=== PATIENT | female | born 1975 | race Hispanic/Latino ===

== ENCOUNTER 2019-12-11 12:06 | Emergency (ER) | payer BC ==
--- NOTE | 2019-12-11 14:58 | ER ---
Nurse's Notes [facility] Name: Alice Yeager Age: 44 yrs Sex: Female : 1975 Arrival Date: 12/11/2019 Time: 12:09 Bed 24 Private MD: Casey Luis Diagnosis: Cellulitis and acute lymphangitis of other parts of limb;Cutaneous abscess of right upper limb Presentation: 12/11 12:31 Presenting complaint: Patient states: "I had a spot on my arm that I've had for months, aj1 last week it flared up real bad so I went to my doctor and she put me on antibiotics, but it got worse so I went back to my doctor on Saturday, and she gave me a different antibiotic, that didn't work so she told me to go to the seo team lead, so I went there and they cut some of it out and gave me antibiotics but the redness just continues to grow" Denies fever. Transition of care: patient was not received from another setting of care. Onset of symptoms was 2019. Risk Assessment: Do you want to hurt yourself or someone else? Patient reports no desire to harm self or others. Initial Sepsis Screen: Does the patient meet any 2 criteria? No. Patient's initial sepsis screen is negative. Does the patient have a suspected source of infection? Yes: Skin breakdown/wound. Care prior to arrival: None. 12:31 Method Of Arrival: Ambulatory aj1 12:31 Acuity: JOSÉ LUIS 3 aj1 Triage Assessment: 12:33 General: Appears in no apparent distress. comfortable, Behavior is calm, cooperative, aj1 appropriate for age. Pain: Pain currently is 4 out of 10 on a pain scale. Neuro: Level of Consciousness is awake, alert, obeys commands. Cardiovascular: Patient's skin is warm and dry. Respiratory: Airway is patent Respiratory effort is even, unlabored, Respiratory pattern is regular, symmetrical. 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 - Social history:: Smoking status: Patient/guardian denies using tobacco. - Ebola Screening: : Patient denies travel to an Ebola-affected area in the 21 days before illness onset. - Family history:: not pertinent. Screenin:39 Abuse screen: Denies threats or abuse. Denies injuries from another. Nutritional ls4 screening: No deficits noted. Tuberculosis screening: No symptoms or risk factors identified. Fall Risk None identified. Assessment: 14:00 General: Appears in no apparent distress. Behavior is calm, cooperative. Neuro: No ls4 deficits noted. Cardiovascular: No deficits noted. Respiratory: No deficits noted. Derm: Skin is intact, Skin is dry, Skin is pink, warm \\T\\ dry. LOWER RIGHT ARM REDNESS AND SWELLING. Vital Signs: 12:33 BP 121 / 87; Pulse 75; Resp 16; Temp 98.0; Pulse Ox 99% on R/A; Weight 61.23 kg (R); aj1 Height 5 ft. 4 in. (162.56 cm) (R); Pain 4/10; 12:33 Body Mass Index 23.17 (61.23 kg, 162.56 cm) aj1 ED Course: 12:09 Patient arrived in ED. mr 12:10 Casey Luis MD is Private Physician. mr 12:33 Triage completed. aj1 12:33 Arm band placed on Patient placed in waiting room, Patient notified of wait time. aj1 13:54 Shawn Hanna MD is Attending Physician. anselmo 14:00 Patient has correct armband on for positive identification. Bed in low position. Call ls4 light in reach. Side rails up X2. 14:04 Karen Hampton, YOVANNY is Primary Nurse. ls4 14:53 Casey Luis MD is Referral Physician. anselmo 15:40 No provider procedures requiring assistance completed. Patient did not have IV access ls4 during this emergency room visit. Administered Medications: 15:09 Drug: Bactrim (160 mg-800 mg (DS) 1 tablet Route: PO; ls4 15:09 Drug: Doxycycline 200 mg Route: PO; ls4 15:09 Drug: Bactroban Ointment 2 % 1 application Route: Topical; Site: affected area; ls4 Outcome: 14:57 Discharge ordered by . anselmo 15:42 Patient left the ED. ls4 Signatures: Jen Barahona RN RN aj1 Shawn Hanna MD MD cha Rivera, Mary mr Stewart, Lisa, RN RN ls4
--- NOTE | 2019-12-11 14:58 | EDPHYS ---
Physician Documentation [facility] Name: Alice Yeager Age: 44 yrs Sex: Female : 1975 Arrival Date: 12/11/2019 Time: 12:09 Bed 24 Private MD: Casey Luis ED Physician Shawn Hanna HPI: 12/11 14:46 This 44 yrs old Female presents to ER via Ambulatory with complaints of anselmo Abscess. 14:46 The patient presents with an abscess of the palmar aspect of right forearm. anselmo Description: The affected area is erythematous, swollen, warm. Onset: The symptoms/episode began/occurred 7 day(s) ago. Possible cause(s): unknown. Associated signs and symptoms: The patient has no apparent associated signs or symptoms. Modifying factors: the symptoms are alleviated by nothing, the symptoms are aggravated by movement, pressure, sitting, squeezing the lesion and expressing the contents. Severity of symptoms: At their worst the symptoms were mild, in the emergency department the symptoms are unchanged. The patient has not experienced similar symptoms in the past. 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 - Social history:: Smoking status: Patient/guardian denies using tobacco. - Ebola Screening: : Patient denies travel to an Ebola-affected area in the 21 days before illness onset. - Family history:: not pertinent. ROS: 14:46 Constitutional: Negative for fever, chills, and weight loss, Eyes: Negative for injury, anselmo pain, redness, and discharge, ENT: Negative for injury, pain, and discharge, Neck: Negative for injury, pain, and swelling, Cardiovascular: Negative for chest pain, palpitations, and edema, Respiratory: Negative for shortness of breath, cough, wheezing, and pleuritic chest pain, Abdomen/GI: Negative for abdominal pain, nausea, vomiting, diarrhea, and constipation, Back: Negative for injury and pain, : Negative for injury, bleeding, discharge, and swelling, Neuro: Negative for headache, weakness, numbness, tingling, and seizure, Psych: Negative for depression, anxiety, suicide ideation, homicidal ideation, and hallucinations, Allergy/Immunology: Negative for hives, rash, and allergies, Endocrine: Negative for neck swelling, polydipsia, polyuria, polyphagia, and marked weight changes, Hematologic/Lymphatic: Negative for swollen nodes, abnormal bleeding, and unusual bruising. 14:46 MS/extremity: Positive for pain, swelling, tenderness, of the palmar aspect of right forearm. Exam: 14:46 Constitutional: This is a well developed, well nourished patient who is awake, alert, anselmo and in no acute distress. Head/Face: Normocephalic, atraumatic. Eyes: Pupils equal round and reactive to light, extra-ocular motions intact. Lids and lashes normal. Conjunctiva and sclera are non-icteric and not injected. Cornea within normal limits. Periorbital areas with no swelling, redness, or edema. ENT: Nares patent. No nasal discharge, no septal abnormalities noted. Tympanic membranes are normal and external auditory canals are clear. Oropharynx with no redness, swelling, or masses, exudates, or evidence of obstruction, uvula midline. Mucous membranes moist. Neck: Trachea midline, no thyromegaly or masses palpated, and no cervical lymphadenopathy. Supple, full range of motion without nuchal rigidity, or vertebral point tenderness. No Meningismus. Chest/axilla: Normal chest wall appearance and motion. Nontender with no deformity. No lesions are appreciated. Cardiovascular: Regular rate and rhythm with a normal S1 and S2. No gallops, murmurs, or rubs. Normal PMI, no JVD. No pulse deficits. Respiratory: Lungs have equal breath sounds bilaterally, clear to auscultation and percussion. No rales, rhonchi or wheezes noted. No increased work of breathing, no retractions or nasal flaring. Back: No spinal tenderness. No costovertebral tenderness. Full range of motion. Skin: Warm, dry with normal turgor. Normal color with no rashes, no lesions, and no evidence of cellulitis. MS/ Extremity: Pulses equal, no cyanosis. Neurovascular intact. Full, normal range of motion. Neuro: Awake and alert, GCS 15, oriented to person, place, time, and situation. Cranial nerves II-XII grossly intact. Motor strength 5/5 in all extremities. Sensory grossly intact. Cerebellar exam normal. Normal gait. Psych: Awake, alert, with orientation to person, place and time. Behavior, mood, and affect are within normal limits. 14:46 Abdomen/GI: Inspection: 14:46 Musculoskeletal/extremity: Extremities: erythema, pain, swelling, tenderness, ROM: no acute changes, full active range of motion, full passive range of motion, Circulation is intact in all extremities. Sensation intact. Compartment Syndrome exam of affected extremity: is normal. Vital Signs: 12:33 BP 121 / 87; Pulse 75; Resp 16; Temp 98.0; Pulse Ox 99% on R/A; Weight 61.23 kg (R); aj1 Height 5 ft. 4 in. (162.56 cm) (R); Pain 4/10; 12:33 Body Mass Index 23.17 (61.23 kg, 162.56 cm) [facility] Procedures: 14:58 Suture/Staple removal: Removed 2 sutures, from right arm, site appears reddened, anselmo dressed with band aid, Patient tolerated well. MDM: 13:54 Patient medically screened. [facility] 14:53 Data reviewed: vital signs, nurses notes. [facility] 12/11 14:46 Order name: Suture Tray at Bedside; Complete Time: 15:04 [facility] 12/11 14:46 Order name: Ice pack; Complete Time: 15:04 [facility] Administered Medications: 15:09 Drug: Bactrim (160 mg-800 mg (DS) 1 tablet Route: PO; ls4 15:09 Drug: Doxycycline 200 mg Route: PO; ls4 15:09 Drug: Bactroban Ointment 2 % 1 application Route: Topical; Site: affected area; ls4 Disposition: 12/11/19 14:57 Discharged to Home. Impression: Cellulitis and acute lymphangitis of other parts of limb, Cutaneous abscess of right upper limb. - Condition is Stable. - Discharge Instructions: Skin Abscess, Skin Abscess, [id number], Cellulitis, Adult, [id number], Incision and Drainage, Care After. - Prescriptions for Bactroban 2 % Topical Ointment - Apply to affected area 1 application by TOPICAL route every 12 hours; 30 gram. Benadryl 25 mg Oral Capsule - take 1 capsule by ORAL route every 6 hours As needed; 30 tablet. Pepcid 20 mg Oral Tablet - take 1 tablet by ORAL route every 12 hours for 10 days; 20 tablet. Doxycycline Hyclate 100 mg Oral Tablet - take 1 tablet by ORAL route every 12 hours; 20 tablet. Bactrim DS 800- 160 mg Oral Tablet - take 1 tablet by ORAL route every 12 hours for 10 days; 20 tablet. - Medication Reconciliation Form, Thank You Letter, Antibiotic Education, Prescription Opioid Use form. - Follow up: Casey Luis MD; When: 2 - 3 days; Reason: Recheck today's complaints, Continuance of care, Re-evaluation by your physician. - Problem is new. - Symptoms have improved. Signatures: Jen Barahona, RN RN aj1 Shawn Hanna MD MD cha Stewart, Lisa, RN RN ls4 Corrections: (The following items were deleted from the chart) 15:42 14:57 12/11/2019 14:57 Discharged to Home. Impression: Cellulitis and acute ls4 lymphangitis of other parts of limb; Cutaneous abscess of right upper limb. Condition is Stable. Forms are Medication Reconciliation Form, Thank You Letter, Antibiotic Education, Prescription Opioid Use. Follow up: Casey Luis; When: 2 - 3 days; Reason: Recheck today's complaints, Continuance of care, Re-evaluation by your physician. Problem is new. Symptoms have improved. anselmo
[2019-12-11] MEDS ORDERED: MUPIROCIN 2% OINT 22GM TUBE TOP ONE (15:08)
[2019-12-11] MEDS ORDERED: SMZ./TMP. 800/160 MG TABLET ONE (15:08)
[2019-12-11] MEDS ORDERED: DOXYCYCLINE 100 MG CAP PO ONE (15:08)
[2019-12-11 16:20] VITALS: BP 121/87; TEMP 98; O2SAT 99
== END 2019-12-11 15:42 | disposition home or self-care (01) ==
LOC: ER 12:06
DX: L03.113 Cellulitis of right upper limb (principal); L03.123 Acute lymphangitis of right upper limb; Z91.013 Allergy to seafood
CPT/HCPCS: 99282

== ENCOUNTER 2024-09-30 11:22 | Inpatient (IN) | payer BC ==
--- OUTSIDE RECORDS SUMMARY | 2024-09-30 11:26 | XMS REPORT | Continuity of Care Document ---
Author Name Unknown Address [address] [facility] [address] [id number] [facility] Address [address] [facility] [address] [place] [address] Care Team Providers Care Assistant Branch Manager Name Role Phone PCP, PATIENT DOES NOT HAVE A Primary Care Physic Shaji Sherman Attending Clinician Unavailable JANN HAHN Attending Clinician Jann Ramos Attending Clinician + Estee Smith Attending Clinician [phone] Doctor Unassigned, [place] Attending Clinician U Shaji Pittman Admitting Clinician Unavailable Payers Payer Name Policy Type Policy Number Effective Date Expirati on Date Source [facility] [id number] 2018 00:00:00 Problems Condition Name Condition Details Condition Category Status Onset Date Resolution Date Last Treatment Date Treating Clinician Comments Source No known active problems No known active problems Disease [facility] Allergies, Adverse Reactions, Alerts Allergy Name Allergy Type Status Severity Reaction(s) Onset Date Inactive Date Treating Clinician Comments Source KEENAN Lawrence DERIVED DRUG INGREDI Active Anaphylaxis 04-21 00:00: 00 [facility] Nitrofur antoin Monohyd/ M-Cryst Propensi ty to adverse reaction s Active Itching 04-21 00:00: 00 [facility] Shellfis h Derived Propensi ty to adverse reaction s Active Anaphylaxis 04-21 00:00: 00 [facility] NITROFUR ANTOIN MONOHYD/ M-CRYST DRUG Active ITCHING 04-21 00:00: 00 [facility] No Known Allergie s DA Active U 2009-11 00:00: 00 [facility] No Known Contrast Allergie s DA Active U 08-19 00:00: 00 [facility] NO KNOWN ALLERGIE S Drug Class Active [facility] Social History Social Habit Start Date Stop Date Quantity Comments Source Exposure to SARS-CoV-2 (event) 2022-04-11 00:00:00 2022-04-21 10:35:00 Not sure [facility] Tobacco use and exposure 2022-04-21 00:00:00 2022-04-21 00:00:00 Never used [facility] Sex Assigned At 1975 00:00:00 1975 00:00:00 [facility] Smoking Status Start Date Stop Date Source Unknown if ever smoked [facility] Never smoker [facility] Medications Ordered Medication Name Filled Medication Name Start Date Stop Date Current Medication? Ordering Clinician Indication Dosage Frequency Signature (SIG) Comments Components Source acetaminoph en (TYLENOL) tablet 650 mg 04-21 17:00: 00 04-21 15:56 :00 No [id number] 650mg [facility] cephALEXin (KEFLEX) 500 mg capsule 04-21 00:00: 00 Yes [id number] 500mg Take 1 capsule by mouth 3 (three) times daily. [facility] naproxen 500 mg tablet 04-21 00:00: 00 Yes [id number] 500mg Take 1 tablet by mouth 2 (two) times daily with meals. [facility] TRI-LO-ESTA RYLLA 0.18/0.215/ 0.25 mg-25 mcg tablet 02-20 00:00: 00 Yes 1{tbl} Take 1 tablet by mouth daily. [facility] methocarbam oL 750 mg tablet 02-17 00:00: 00 Yes TAKE ONE (1) TABLET(S) BY MOUTH AT BEDTIME NEEDED. [facility] Vital Signs Vital Name Observation Time Observation Value Comments S ource Systolic blood pressure 2022-04-21 15:37:00 117 mm[Hg] [facility] Diastolic blood pressure 2022-04-21 15:37:00 77 mm[Hg] [facility] Heart rate 2022-04-21 15:37:00 109 /min [facility] Body temperature 2022-04-21 15:37:00 39.11 Maria T [facility] Respiratory rate 2022-04-21 15:37:00 16 /min [facility] Body height 2022-04-21 15:37:00 162.6 cm [facility] Body weight 2022-04-21 15:37:00 68.493 kg [facility] BMI 2022-04-21 15:37:00 25.92 kg/m2 [facility] Oxygen saturation in Arterial blood by Pulse oximetry 2022-04-21 15:37:00 98 /min [facility] Procedures Procedure Date / Time Performed Performing Clinicia n Source POCT MOLECULAR FLU 2022-04-21 15:55:00 Louisa Naik [facility] POCT URINALYSIS 2022-04-21 15:45:00 Estee Naik [facility] ASSIGNMENT OF BENEFITS 2022-04-21 15:30:13 Docto r Unassigned, [place] [facility] Encounters Start Date/Time End Date/Time Encounter Type Admission Type Attending Clinicians Care Facility Care Department Encounter ID Source 2024-04-06 08:00:00 2024-04-06 08:00:00 Outpatient Shaji Arteaga [facility] JESÚS [id number] [facility] 2024-03-19 08:00:00 2024-03-19 08:00:00 Outpatient Shaji Arteaga [facility] JESÚS [id number] [facility] 2022-04-21 10:40:00 2022-04-21 11:15:28 Outpatient R JANN [facility] [id number] [facility] 2022-04-21 10:40:00 2022-04-21 11:15:28 [facility] [id number] [facility] 2022-04-21 00:00:00 2022-04-21 00:00:00 Orders Only Doctor Unassigned, [place] [facility] [id number] [facility] Results Test Description Test Time Test Comments Results Result Co mments Source [facility] SPECIFIC [id number] 15:46:00* Test Item Value Reference Range Interpretation Comme nts POCT U SP GRAV (test code = 3255) 1.025 mg/dl 1.005-1.025 POCT PH U (test code = 3254) 5 mg/dl 5-8 POCT U LEUK EST (test code = 3263) neg Negative - Negative POCT U NIT (test code = 3262) neg Negative - Negative POCT U PROT (test code = 3259) neg Negative - Negative POCT U GLU (test code = 3256) norm Negative - Negative POCT U KETONE (test code = 3258) neg Negative - Negative POCT U UROBILI (test code = 3260) norm 0.2-1 POCT U BILI (test code = 3261) neg Negative - Negative POCT U BLD (test code = 3257) Negative - Negative POCT U COLOR (test code = 3266) yellow POCT U APPEAR (test code = 3267) cloudy EARLENE (test code = EARLENE) accurate developme nt and interpretation of all internal controls Lab Interpretation (test code = 19562-7) Abnormal [facility]
[2024-09-30] MEDS ORDERED: ONDANSETRON 4 MG/2 ML VIAL ONE (11:39)
[2024-09-30] MEDS ORDERED: MORPHINE 4 MG/ML SYR ONE ×2 (11:40→13:59)
[2024-09-30] MEDS ORDERED: NA CHLORIDE 0.9% 1,000 ML ONE (11:40)
[2024-09-30] MEDS ORDERED: NA CHLORIDE 0.9% 100 ML ONE (11:50)
[2024-09-30] MEDS ORDERED: CEFTRIAXONE 2000 MG/VIAL ONE (11:50)
[2024-09-30 12:11] LABS: Absolute Basophils 0.1 K/uL (0-0.5); Absolute Lymphocytes (CBC) 1.8 K/uL (0.7-4.9); Absolute Monocytes 0.9 K/uL (0.1-1.3); Absolute Neutrophil 8.8 K/uL (1.8-8.0); Basophils % 0.5 % (0-1.3); Eosinophils % 0.4 % (0-4.4); Hematocrit 39.8 % (36.0-45.0); Hemoglobin 13.2 g/dL (12.0-15.0); Lymphocytes % 15.3 % (15.3-44.8); MCH 29.8 pg (27.0-35.0); MCHC 33.3 g/dL (32.0-36.0); MCV 89.4 fL (80-100); MPV 8.4 fL (7.6-11.3); Monocytes % 7.9 % (3.3-12.3); Neutrophils % 75.9 % (41.7-73.7); Platelets 208 thou/uL (152-406); RBC Red Blood Cell Count 4.45 M/uL (3.86-4.86); Red Cell Distribution Width 13.7 % (12.1-15.2)
[2024-09-30 12:14] LABS: Specific Gravity 1.027 (1.005-1.030); Urine Bacteria <20 /HPF (<20); Urine Bilirubin NEGATIVE (Negative); Urine Blood 3+ (Negative); Urine Clarity Extremely Turbid (Clear); Urine Color Yellow (Yellow); Urine Culture Reflex Order NOT NEEDED; Urine Glucose NEGATIVE (Negative); Urine Ketones 1+ (Negative); Urine Microscopic Reflex YN ORDER UMIC; Urine Mucus 2+ /HPF (None Seen); Urine Nitrite NEGATIVE (Negative); Urine Protein TRACE (Negative); Urine RBC <5 /HPF (None Seen); Urine Urobilinogen Normal (Normal); Urine WBC <5 /HPF (<5); Urine pH 5.5 (5.0-7.0)
[2024-09-30 12:16] LABS: Specific Gravity 1.027 (1.005-1.030)
[2024-09-30 12:33] LABS: ALT/SGPT 15 U/L (13-56); Albumin 3.5 g/dL (3.4-5.0); Albumin/Globulin Ratio 0.9 (1.1-1.8); Alkaline Phosphatase 50 U/L (45-117); Anion Gap 7.6 mEq/L (5.0-15.0); BUN Blood Urea Nitrogen 11 mg/dL (7-18); Bicarbonate 25 mEq/L (21-32); Bilirubin Total 0.7 mg/dL (0.2-1.0); Globulin 3.7 g/dL (2.3-3.5); Glomerular Filtration Rate 112 ml/min (=/>90); Glucose Level 112 mg/dL (74-106); Lipase 30 U/L (13-75); Potassium 3.6 mEq/L (3.5-5.1); Protein, Total 7.2 g/dL (6.4-8.2); Sodium Level 138 mEq/L (136-145)
[2024-09-30 12:34] LABS: AST/SGOT < 10 U/L (15-37)
--- NOTE | 2024-09-30 13:34 | RAD REPORT ---
EXAMINATION: CT Abdomen Pelvis W Contrast CLINICAL INDICATION: Female, 48 years old. REBOUND TENDERNESS TECHNIQUE: CT abdomen and pelvis was performed, after the administration of IV contrast, as per [facility] protocol. Axial, sagittal and coronal reconstructions were obtained. One or more of the following dose reduction techniques were used: Automated exposure control, adjustment of the mA and k V according to patient size, and iterative reconstruction. Unless otherwise specified, incidental findings do not require dedicated imaging follow-up. COMPARISON: None available FINDINGS: LOWER CHEST: The visualized lung bases are clear. LIVER: Normal in size and contour. No focal lesion. BILIARY SYSTEM: No suspicious abnormalities. SPLEEN: Normal size. No focal lesion. PANCREAS: No mass, ductal dilation, or magdiel-pancreatic fluid. ADRENALS: Normal; no mass. KIDNEYS: Normal size and contour. No hydronephrosis. Left interpolar 2 mm nonobstructing calculus. URINARY BLADDER: Decompressed limiting evaluation. GASTROINTESTINAL TRACT: Colonic diverticulosis. Pronounced wall thickening focally in the proximal si gmoid colon, surrounding a diverticulum projecting laterally, with focal circumferential wall thickening, adjacent fat stranding, and mucosal hyperenhancement enhancement of the colon in this reg ion. Trace fluid in the cul-de-sac. No evidence of free air, bowel obstruction or abscess. APPENDIX: Normal appendix. LYMPH NODES: No lymphadenopathy. MUSCULOSKELETAL: No acute or suspicious osseous abnormality. ADDITIONAL FINDINGS: None. IMPRESSION: Changes of acute uncomplicated sigmoid diverticulitis as above. No evidence of extraluminal gas or ab normal fluid collections. Nonobstructing left interpolar 2 mm calculus. THIS REPORT CONTAINS FINDINGS THAT MAY BE CRITICAL TO PATIENT CARE. The findings were verbally commun icated via telephone to Angela Brady MD on 09/30/2024 1:24 PM.
[2024-09-30] MEDS ORDERED: MORPHINE 2 MG/ML SYR ONE (14:00)
--- NOTE | 2024-09-30 16:22 | ER ---
Nurse's Notes [facility] Name: Alice Yeager Age: 48 yrs Sex: Female : 1975 Arrival Date: 09/30/2024 Time: 11:22 Bed 18 Private MD: Diagnosis: Diverticulitis of intestine, part unspecified, without perforation or abscess without bleeding Presentation: 09/30 11:33 Chief complaint: Patient states: Abdominal pain since Saturday with nausea. Fever started ll1 yesterday. Coronavirus screen: Client denies travel out of the [place] in the last 14 days. fatigue, fever, nausea, Client presents with at least one sign or symptom that may indicate coronavirus-19. Standard/surgical mask placed on the client. Ebola Screen: Patient denies travel to an Ebola-affected area in the 21 days before illness onset. Initial Sepsis Screen: Does the patient meet any 2 criteria? No. Patient's initial sepsis screen is negative. Does the patient have a suspected source of infection? No. Patient's initial sepsis screen is negative. Risk Assessment: Do you want to hurt yourself or someone else? Patient reports no desire to harm self or others. Onset of symptoms was September 28, 2024. 11:33 Method Of Arrival: Ambulatory ll1 11:33 Acuity: JOSÉ LUIS 3 ll1 Triage Assessment: 11:35 General: Appears uncomfortable, Behavior is calm, cooperative, appropriate for age. ll1 General: Reports fever for. Pain: Complains of pain in abdomen Pain currently is 5 out of 10 on a pain scale. Quality of pain is described as aching, crampy. GI: Reports lower abdominal pain, nausea. 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 - Infectious Disease History:: Denies. - Social history:: Smoking status: Patient denies any tobacco usage or history of. Screenin:30 [facility] ED Fall Risk Assessment (Adult) History of falling in the last 3 months, rs5 including since admission No falls in past 3 months (0 pts) Confusion or Disorientation No (0 pts) Intoxicated or Sedated No (0 pts) Impaired Gait No (0 pts) Mobility Assist Device Used No (0 pt) Altered Elimination No (0 pt) Score/Fall Risk Level 0 - 2 = Low Risk Oriented to surroundings, Maintained a safe environment. Abuse screen: Denies threats or abuse. Nutritional screening: No deficits noted. Tuberculosis screening: No symptoms or risk factors identified. Assessment: 11:30 General: Appears in no apparent distress. uncomfortable, Behavior is calm, cooperative. rs5 Pain: Complains of pain in abdomen Pain currently is 8 out of 10 on a pain scale. Quality of pain is described as aching, Is continuous. Neuro: Level of Consciousness is awake, alert, obeys commands, Oriented to person, place, time, situation. Cardiovascular: Patient's skin is warm and dry. Respiratory: Airway is patent Respiratory effort is even, unlabored, Respiratory pattern is regular, symmetrical. 11:30 GI: Bowel sounds present X 4 quads. Abd is soft and non tender X 4 quads. Reports rs5 nausea. : No signs and/or symptoms were reported regarding the genitourinary system. EENT: Reports nasal congestion sore throat. Derm: Skin is intact, Skin is pink, warm \T\ dry. Musculoskeletal: Range of motion: intact in all extremities. 12:18 Reassessment: Patient and/or family updated on plan of care and expected duration. Pain rs5 level reassessed. Patient is alert, oriented x 3, equal unlabored respirations, skin warm/dry/pink. 14:10 General: Appears comfortable, ill, well groomed, well developed, well nourished, me1 Behavior is calm, cooperative, appropriate for age, Denies Abdominal pain since Saturday with nausea. Fever started yesterday. Pain: Complains of pain in abdomen Quality of pain is described as aching, sharp, Is continuous. Neuro: Level of Consciousness is awake, alert, obeys commands, Oriented to person, place, time, situation, Appropriate for age. Cardiovascular: Patient's skin is warm and dry. Respiratory: Airway is patent Respiratory effort is even, unlabored, Respiratory pattern is regular, symmetrical. GI: Bowel sounds present X 4 quads. Abd is soft and non tender X 4 quads. Reports nausea. : No signs and/or symptoms were reported regarding the genitourinary system. EENT: Reports nasal congestion. Derm: Skin is intact, is healthy with good turgor, Skin is pink, warm \T\ dry. Musculoskeletal: Range of motion: intact in all extremities. Vital Signs: 11:33 BP 123 / 87; Pulse 105; Resp 17; Temp 99.1(O); Pulse Ox 99% on R/A; Weight 70.31 kg; ll1 Height 5 ft. 4 in. ; Pain 5/10; 12:00 BP 123 / 89; Pulse 96; Resp 16; Pulse Ox 97% ; me1 13:00 BP 113 / 76; Pulse 80; Resp 17; Pulse Ox 99% ; me1 14:00 BP 115 / 82; Pulse 82; Resp 16; Pulse Ox 98% ; me1 15:00 BP 104 / 76; Pulse 82; Resp 16; Pulse Ox 99% ; me1 16:00 BP 125 / 83; Pulse 91; Resp 14; Pulse Ox 99% ; me1 17:26 BP 122 / 90; Pulse 92; Resp 16; Pulse Ox 98% ; me1 18:01 BP 112 / 75; Pulse 84; Resp 17; Pulse Ox 99% ; me1 18:40 BP 116 / 71; Pulse 80; Resp 16; Pulse Ox 98% ; me1 11:33 Body Mass Index 26.61 (70.31 kg, 162.56 cm) ll1 11:33 Pain Scale: Adult ll1 ED Course: 11:25 Patient arrived in ED. mr 11:26 Arm band placed on Patient placed in an exam room, on a stretcher. ll1 11:27 Angela Brady MD is Attending Physician. gb1 11:30 Patient has correct armband on for positive identification. Placed in gown. Bed in low rs5 position. Call light in reach. Side rails up X2. 11:30 No provider procedures requiring assistance completed. rs5 11:34 Nash Corona RN is Primary Nurse. rs5 11:35 Triage completed. ll1 12:53 CT Abd/Pelvis - IV Contrast Only In Process Unspecified. EDMS 14:10 Provided Education on: POC. Verbalized understanding. . Client placed on continuous me1 cardiac and pulse oximetry monitoring. NIBP monitoring applied. Pulse ox on. NIBP on. 14:10 Inserted saline lock: 20 gauge in right antecubital area, using aseptic technique. me1 16:20 Yakelin Gonzales is Hospitalizing Provider. gb1 18:00 Patient admitted, IV remains in place. me1 Administered Medications: 12:04 Drug: Ondansetron IVP 4 mg IVP once; over 2 minutes Route: IVP; Site: right antecubital;rs5 14:04 Follow up: Response: No adverse reaction; Nausea is decreased me1 12:04 Drug: morphine IVP or IV 4 mg IVP once over 4 mins Route: IVP; Infused Over: 4 mins; rs5 Site: right antecubital; 14:05 Follow up: Response: No adverse reaction; Pain is decreased me1 12:04 Drug: NS 0.9% IV 1000 ml IV at 1 bolus Per protocol; to be given as a bolus over 60 rs5 minutes Route: IV; Rate: 1 bolus; Site: right antecubital; 14:07 Follow up: Response: No adverse reaction; IV Status: Completed infusion; IV Intake: me1 1000ml 12:04 Drug: Rocephin IV 2 grams IV at bolus once; Given slow IV push per [employer] rs5 instructions Route: IV; Rate: bolus; Site: right antecubital; 14:07 Follow up: Response: No adverse reaction; IV Status: Completed infusion me1 14:04 Drug: morphine IVP or IV 5 mg IVP once over 4 mins Route: IVP; Infused Over: 4 mins; me1 Site: right antecubital; 16:25 Follow up: Response: No adverse reaction; Pain is decreased me1 Medication: 12:19 VIS not applicable for this client. rs5 Intake: 14:07 IV: 1000ml; Total: 1000ml. me1 Outcome: 16:21 Decision to Hospitalize by Provider. gb1 18:00 Admitted to Med/surg accompanied by tech, via wheelchair, room 223, with chart, Report me1 called to faxed, receipt confirmed with Kylee 18:00 Condition: stable 18:00 Instructed on the need for admit, 18:45 Patient left the ED. me1 Signatures: Dispatcher [employer] EDMI Tenisha Gonzalez, Reg Reg mr Venkatesh Xiong RN RN 1 Nash Corona RN RN rs5 Selam Goncalves RN RN fl1 Angela Brady MD MD 1 Corrections: (The following items were deleted from the chart) 14:57 11:33 Chief complaint: Patient states: Abdominal pain since Saturday with nausea. Fever me1 started yesterday. ll1
--- NOTE | 2024-09-30 16:22 | EDPHYS ---
Physician Documentation [facility] Name: Alice Yeager Age: 48 yrs Sex: Female : 1975 Arrival Date: 09/30/2024 Time: 11:22 Bed 18 Private MD: ED Physician Angela Brady HPI: 09/30 11:44 This 48 yrs old Female presents to ER via Ambulatory with complaints of gb1 Abdominal Pain. 11:44 48-year-old female started yesterday with abdominal pain and fever. She has been gb1 nauseated no vomiting. She otherwise has no medical conditions and takes no medications. She states that when she was driving today it hurt when she went over bumps. She states that she had a temperature yesterday of 101 and has been having chills as well. She went to urgent care and her urine was tested and she was sent home and referred to the emergency department for further evaluation of care.. 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 - Infectious Disease History:: Denies. - Social history:: Smoking status: Patient denies any tobacco usage or history of. Exam: 11:44 Constitutional: This is a well developed, well nourished patient who is awake, alert, gb1 and in no acute distress. Head/Face: Normocephalic, atraumatic. Eyes: Pupils equal round and reactive to light, extra-ocular motions intact. Lids and lashes normal. Conjunctiva and sclera are non-icteric and not injected. Cornea within normal limits. Periorbital areas with no swelling, redness, or edema. ENT: Nares patent. No nasal discharge, no septal abnormalities noted. Tympanic membranes are normal and external auditory canals are clear. Oropharynx with no redness, swelling, or masses, exudates, or evidence of obstruction, uvula midline. Mucous membranes moist. Neck: Trachea midline, no thyromegaly or masses palpated, and no cervical lymphadenopathy. Supple, full range of motion without nuchal rigidity, or vertebral point tenderness. No Meningismus. Chest/axilla: Normal chest wall appearance and motion. Nontender with no deformity. No lesions are appreciated. Cardiovascular: Regular rate and rhythm with a normal S1 and S2. No gallops, murmurs, or rubs. Normal PMI, no JVD. No pulse deficits. Respiratory: Lungs have equal breath sounds bilaterally, clear to auscultation and percussion. No rales, rhonchi or wheezes noted. No increased work of breathing, no retractions or nasal flaring. Abdomen/GI: Soft, +peritoneal tenderness, with normal bowel sounds. No distension or tympany. +guarding and rebound. +RLQ TTP Back: No spinal tenderness. No costovertebral tenderness. Full range of motion. Skin: Warm, dry with normal turgor. Normal color with no rashes, no lesions, and no evidence of cellulitis. MS/ Extremity: Pulses equal, no cyanosis. Neurovascular intact. Full, normal range of motion. Neuro: Awake and alert, GCS 15, oriented to person, place, time, and situation. Cranial nerves II-XII grossly intact. Motor strength 5/5 in all extremities. Sensory grossly intact. Cerebellar exam normal. Normal gait. Vital Signs: 11:33 BP 123 / 87; Pulse 105; Resp 17; Temp 99.1(O); Pulse Ox 99% on R/A; Weight 70.31 kg; ll1 Height 5 ft. 4 in. ; Pain 5/10; 12:00 BP 123 / 89; Pulse 96; Resp 16; Pulse Ox 97% ; me1 13:00 BP 113 / 76; Pulse 80; Resp 17; Pulse Ox 99% ; me1 14:00 BP 115 / 82; Pulse 82; Resp 16; Pulse Ox 98% ; me1 15:00 BP 104 / 76; Pulse 82; Resp 16; Pulse Ox 99% ; me1 16:00 BP 125 / 83; Pulse 91; Resp 14; Pulse Ox 99% ; me1 17:26 BP 122 / 90; Pulse 92; Resp 16; Pulse Ox 98% ; me1 18:01 BP 112 / 75; Pulse 84; Resp 17; Pulse Ox 99% ; me1 18:40 BP 116 / 71; Pulse 80; Resp 16; Pulse Ox 98% ; me1 11:33 Body Mass Index 26.61 (70.31 kg, 162.56 cm) ll1 11:33 Pain Scale: Adult ll1 MDM: 11:27 Medical Screening Exam initiated gb1 16:21 Data reviewed: radiologic studies, CT scan. ED course: 48-year-old female with acute gb1 left lower quadrant diverticulitis without abscess or bleeding. Patient is requiring IV pain medicines, I have started IV Rocephin and will admit her to the hospital on observation. Patient is admitted by Dr. Gonzales.. 09/30 11:36 Order name: CBC with Diff; Complete Time: 12:31 gb1 09/30 11:36 Order name: CMP; Complete Time: 12:43 gb1 09/30 11:36 Order name: Lipase; Complete Time: 12:43 gb1 09/30 11:36 Order name: Test, Urine; Complete Time: 12:31 gb1 09/30 11:36 Order name: Urinalysis w/ reflexes; Complete Time: 12:31 gb1 09/30 17:46 Order name: Basic Metabolic Panel EDMS 09/30 17:46 Order name: Basic Metabolic Panel EDMS 09/30 17:46 Order name: Basic Metabolic Panel EDMS 09/30 17:46 Order name: Basic Metabolic Panel EDMS 09/30 17:46 Order name: CBC with Automated Diff EDMS 09/30 17:46 Order name: CBC with Automated Diff EDMS 09/30 17:46 Order name: CBC with Automated Diff EDMS 09/30 17:46 Order name: CBC with Automated Diff EDMS 09/30 17:46 Order name: Lipid Profile EDMS 09/30 17:46 Order name: Lipid Profile EDMS 09/30 17:46 Order name: Magnesium EDMS 09/30 17:46 Order name: Magnesium EDMS 09/30 11:36 Order name: CT Abd/Pelvis - IV Contrast Only; Complete Time: 13:42 gb1 09/30 11:36 Order name: IV Saline Lock; Complete Time: 12:04 gb1 09/30 11:36 Order name: Labs collected and sent; Complete Time: 12:04 gb1 Administered Medications: 12:04 Drug: Ondansetron IVP 4 mg IVP once; over 2 minutes Route: IVP; Site: right antecubital;rs5 14:04 Follow up: Response: No adverse reaction; Nausea is decreased me1 12:04 Drug: morphine IVP or IV 4 mg IVP once over 4 mins Route: IVP; Infused Over: 4 mins; rs5 Site: right antecubital; 14:05 Follow up: Response: No adverse reaction; Pain is decreased me1 12:04 Drug: NS 0.9% IV 1000 ml IV at 1 bolus Per protocol; to be given as a bolus over 60 rs5 minutes Route: IV; Rate: 1 bolus; Site: right antecubital; 14:07 Follow up: Response: No adverse reaction; IV Status: Completed infusion; IV Intake: me1 1000ml 12:04 Drug: Rocephin IV 2 grams IV at bolus once; Given slow IV push per [employer] rs5 instructions Route: IV; Rate: bolus; Site: right antecubital; 14:07 Follow up: Response: No adverse reaction; IV Status: Completed infusion me1 14:04 Drug: morphine IVP or IV 5 mg IVP once over 4 mins Route: IVP; Infused Over: 4 mins; me1 Site: right antecubital; 16:25 Follow up: Response: No adverse reaction; Pain is decreased me1 Disposition Summary: 09/30/24 16:21 Hospitalization Ordered Notes: Hospitalization Status: Observation gb1 Provider: Yakelin Gonzales gb Location: Telemetry/MedSurg (observation) gb1 Condition: Stable gb1 Problem: new gb1 Symptoms: have worsened gb1 Bed/Room Type: [place] [address] Room Assignment: 225(09/30/24 18:30) bd Diagnosis - Diverticulitis of intestine, part unspecified, without perforation or abscess gb1 without bleeding Forms: - Medication Reconciliation Form gb1 - SBAR form gb1 - Leadership Thank You Letter gb1 Signatures: Dispatcher [employer] EDMS Mariola Miles Lynsay, RN RN 1 Nash Corona RN RN rs5 Selam Goncalves RN RN me1 Angela Brady MD MD gb1 Corrections: (The following items were deleted from the chart) 11:37 11:37 CBC+H.LAB.BRZ ordered. EDMS EDMS 11:37 11:37 COMPREHENSIVE METABOLIC PANEL+C.LAB.BRZ ordered. EDMS EDMS 11:37 11:37 LIPASE+C.LAB.BRZ ordered. EDMS EDMS 11:37 11:37 Test, Urine+UC.LAB.BRZ ordered. EDMS EDMS 1137 11:37 Urinalysis+U.LAB.BRZ ordered. EDMS EDMS 17:53 16:21 gb1 bd 18:30 17:53 223 bd bd
[2024-09-30] MEDS ORDERED: SODIUM CHLORIDE 0.9% 10ML INJ IV PRN (17:43)
--- NOTE | 2024-09-30 17:45 | P.HP ---
Certification for Inpatient Patient admitted to: Observation With expected LOS: <2 Midnights Patient will require the following post-hospital care: None Practitioner: I am a practitioner with admitting privileges, knowledge of patient current condition, hospital course, and medical plan of care. Services: Services provided to patient in accordance with Admission requirements found in Title 42 Section 412.3 of the Code of Federal Regulations Patient History Date of Service: 09/30/24 Reason for admission: Fever and abdominal pain History of Present Illness: This is a 48 years old female patient with past medical history notable for colonic diverticulum and colonic polyp, allergic rhinitis status post section who presented to the emergency room today for evaluation of a fever up to 101 Fahrenheit at home, lower abdominal pain and nausea for 2 days. Her abdominal pain was moderate intensity, no medication tried at home, intermittent, aggravated by motion, associated with nausea but no vomiting, located in lower abdomen mainly left lower quadrant, she had a bowel movement yesterday, it was a small amount, denied any hematochezia or diarrhea. She was diagnosed with a colonic diverticulum and colonic polyp by colonoscopy 2 years ago. Denied any episode of diverticulitis in the past. Her blood pressure was normotensive, mild tachycardic at 101, body temperature 88.1 F, good oxygenation 99% on room air upon arrival at emergency room. Left finding noted for mild leukocytosis 11.6, CT of abdomen and pelvis with contrast revealed uncomplicated colonic diverticulitis of proximal sigmoid colon, patient received 1 dose of 2 g IV ceftriaxone, 4 mg ondansetron IV x 1, 4 mg morphine IV x 1, received 1 L bolus of normal saline, internal medicine was called for evaluation for admission. Home medications list reviewed: Yes (Allergy medication) Review of Systems Other: Consitutional; fever(+), chills (-), rigor(-), night sweat(-), unintentional weight loss(-) HEENT; epistaxis (-), otorrhea (-), otalgia (-) Respiratory; shortness of breath (-), wheezing (-), cough (-), sputum (-), pleuritic chest pain (-) Cardiovascular; chest pain (-), peripheral edema (-), paroxysmal nocturnal dyspnea (-), orthopnea (-) Gastrointestinal; nausea (-), vomiting (-), abdominal pain (+), diarrhea (-), constipation (-), melena (-), hematochezia (-) Urinary system; urinary frequency(-), dysuria(-), urgency(-) Skin; rash (-), 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 General: Not acutely ill looking, in no apparent distress,. HEENT: Normocephalic, atraumatic,. Neck: Supple, without JVD or goiter or thyroid mass. Respiratory: Normal breathing effort, clear to auscultation bilaterally, no crackles no wheezing or rhonchi. Cardiovascular: Regular rate and rhythm, S1, S2 normal, no murmur no gallop. G astrointestinal: Normal bowel sounds, nondistended, mild direct tenderness in suprapubic area and left lower quadrant, no rebound tenderness, No ascites, , No masses, no hepatosplenomegaly. Musculoskeletal: No clubbing, No peripheral edema. Integumentary: No rashes. Lymphatics: No axilla or cervical lymphadenopathy. Neurology; alert awake oriented x3, no focal neurologic deficit - Studies Laboratory Data (last 24 hrs) 09/30/24 09/30/24 11:57 11:57 WBC 11.60 H Hgb 13.2 Hct 39.8 Plt Count 208 Sodium 138 Potassium 3.6 BUN 11 Creatinine 0.61 Glucose 112 H Total Bilirubin 0.7 AST < 10 L ALT 15 Alkaline Phosphatase 50 Lipase 30 Assessment and Plan - Plan This is a 48 years old female patient with a past medical history notable for a colonic diverticulum, colonic polyp and seasonal allergy status post section who presented to the emergency room for evaluation of 2 days of fever, 101 Fahrenheit at home, lower abdominal pain, nausea and admitted for #1 first episode of uncomplicated colonic diverticulitis by CT of the abdomen Nonsurgical management with IV antibiotics, fluoroquinolone plus metronidazole, oral diet as tolerated, pain control with IV morphine as needed Had a colonoscopy 2 years ago. #2 history of fever likely related to #1 with a possible sepsis No other source of infection, monitor body temperature DVT prophylaxis; low risk of thromboembolism Disposition; plan to discharge home with oral antibiotics in 1 to 2 days Discharge Plan: Home - Advance Directives Does patient have a Living Will: No Does patient have a Durable POA for Healthcare: No
[2024-09-30 19:09] VITALS: O2SAT 98
[2024-09-30] MEDS: NA CHLORIDE 0.9% 1,000 ML IV SCH (19:40)
[2024-09-30] MEDS: METRONIDAZOLE 500mg IVPB 500 MG/100 ML BAG IV SCH (19:41)
[2024-09-30] MEDS: Levofloxacin 750mg IV 750 MG/150 ML BAG IV SCH (19:41)
[2024-09-30 21:08] VITALS: BMI 26.6
[2024-09-30] MEDS: MORPHINE 4 MG/ML SYR IV PRN (21:43)
[2024-09-30] MEDS: ONDANSETRON 4 MG/2 ML VIAL IV ONE (21:43)
[2024-10-01] MEDS: PROMETHAZINE INJ 25 MG/ML AMP IV PRN (04:47)
[2024-10-01 05:53] LABS: Absolute Eosinophils 0.1 K/uL (0-0.5); Absolute Lymphocytes (CBC) 1.6 K/uL (0.7-4.9); Absolute Monocytes 0.6 K/uL (0.1-1.3); Absolute Neutrophil 6.2 K/uL (1.8-8.0); Basophils % 0.2 % (0-1.3); Eosinophils % 0.6 % (0-4.4); Hematocrit 33.3 % (36.0-45.0); Hemoglobin 11.3 g/dL (12.0-15.0); Lymphocytes % 18.9 % (15.3-44.8); MCH 30.4 pg (27.0-35.0); MCHC 33.8 g/dL (32.0-36.0); MPV 8.2 fL (7.6-11.3); Monocytes % 6.9 % (3.3-12.3); Neutrophils % 73.4 % (41.7-73.7); Platelets 173 thou/uL (152-406); Red Cell Distribution Width 13.4 % (12.1-15.2)
[2024-10-01 06:08] LABS: Anion Gap 8.5 mEq/L (5.0-15.0); Magnesium 1.9 mg/dL (1.6-2.4); Potassium 3.5 mEq/L (3.5-5.1)
[2024-10-01] MEDS: FLU (Fluarix Triv) TS24-25(6MOS UP)/PF 45 MCG/0.5 ML Syringe IM ONE (07:15)
[2024-10-01] MEDS: PANTOPRAZOLE 40 MG INJ IVP SCH (08:57)
[2024-10-01] MEDS: POTASSIUM CL SA 10 MEQ TAB PO ONE (08:58)
[2024-10-01] MEDS ORDERED: ONDANSETRON 4 MG (ODT) TAB PO PRN (10:34)
[2024-10-01] MEDS ORDERED: CODEINE 30MG/APAP 300MG TAB PO PRN (10:35)
--- NOTE | 2024-10-01 11:34 | P.PN ---
Subjective Date of Service: 10/01/24 Chief Complaint: Fever and abdominal pain Patient report she vomited 1 time last night and feel nauseated this morning for no further emesis, tolerating oral fluid and diet this morning, her abdominal pain is unchanged significantly, still moderate intensity, aggravated by movement, received IV morphine but experience headache, wants to try oral analgesics Review of Systems Other: Consitutional; fever(-), chills (-), rigor(-), night sweat(-), unintentional weight loss(-) HEENT; epistaxis (-), otorrhea (-), otalgia (-) Respiratory; shortness of breath (-), wheezing (-), cough (-), sputum (-), pleuritic chest pain (-) Cardiovascular; chest pain (-), peripheral edema (-), paroxysmal nocturnal dyspnea (-), orthopnea (-) Gastrointestinal; nausea (-), vomiting (-), abdominal pain (+), diarrhea (-), constipation (-), melena (-), hematochezia (-) Urogenital; dysuria (-), frequency (-), flank pain (-), urinary urgency(-) Skin; rash (-), 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 General: Not acutely ill looking, in no apparent distress,. HEENT: Normocephalic, atraumatic,. Neck: Supple, without JVD or goiter or thyroid mass. Respiratory: Normal breathing effort, clear to auscultation bilaterally, no crackles no wheezing or rhonchi. Cardiovascular: Regular rate and rhythm, S1, S2 normal, no murmur no gallop. Gastrointestinal: Normal bowel sounds, nondistended, mild direct tenderness in suprapubic area and left lower quadrant, no rebound tenderness, No ascites, , No masses, no hepatosplenomegaly. Musculoskeletal: No clubbing, No peripheral edema. Integumentary: No rashes. Lymphatics: No axilla or cervical lymphadenopathy. Neurology; alert awake oriented x3, no focal neurologic defi cit - Studies Laboratory Data (last 24 hrs) 09/30/24 09/30/24 11:57 11:57 WBC 11.60 H Hgb 13.2 Hct 39.8 Plt Count 208 Sodium 138 Potassium 3.6 BUN 11 Creatinine 0.61 Glucose 112 H Total Bilirubin 0.7 AST < 10 L ALT 15 Alkaline Phosphatase 50 Lipase 30 Assessment And Plan - Plan This is a 48 years old female patient with a past medical history notable for a colonic diverticulum, colonic polyp and seasonal allergy status post section who presented to the emergency room for evaluation of 2 days of fever, 101 Fahrenheit at home, lower abdominal pain, nausea and admitted for #1 first episode of uncomplicated colonic diverticulitis by CT of the abdomen Stable, Nonsurgical management with IV antibiotics, will continue ciprofloxacin plus metronidazole IV, oral diet as tolerated Will add ondansetron OTC, oral pain medication Tylenol 3/ibuprofen in addition to IV morphine Had a colonoscopy 2 years ago. #2 history of fever likely related to #1 Afebrile overnight, no other source of infection, mild leukocytosis resolved DVT prophylaxis; low risk of thromboembolism, Early ambulation Disposition; plan to discharge home with oral antibiotics tomorrow if patient tolerates oral diet and p.o. medication
[2024-10-01] MEDS: ACETAMINOPHEN 500 MG TAB PO PRN (11:37)
[2024-10-01] MEDS: IBUPROFEN 600 MG TAB PO SCH (13:48)
[2024-10-02 05:30] LABS: Absolute Eosinophils 0.1 K/uL (0-0.5); Absolute Lymphocytes (CBC) 1.8 K/uL (0.7-4.9); Absolute Monocytes 0.4 K/uL (0.1-1.3); Absolute Neutrophil 3.1 K/uL (1.8-8.0); Basophils % 0.4 % (0-1.3); Eosinophils % 1.6 % (0-4.4); Hematocrit 32.9 % (36.0-45.0); Hemoglobin 11.1 g/dL (12.0-15.0); Lymphocytes % 32.9 % (15.3-44.8); MCH 30.3 pg (27.0-35.0); MCHC 33.7 g/dL (32.0-36.0); MPV 8.3 fL (7.6-11.3); Monocytes % 7.8 % (3.3-12.3); Neutrophils % 57.3 % (41.7-73.7); Platelets 186 thou/uL (152-406); RBC Red Blood Cell Count 3.65 M/uL (3.86-4.86); Red Cell Distribution Width 13.6 % (12.1-15.2)
[2024-10-02 05:49] LABS: Anion Gap 5.5 mEq/L (5.0-15.0); Potassium 3.5 mEq/L (3.5-5.1)
[2024-10-02] MEDS: POTASSIUM CL SA 10 MEQ TAB PO ONE (08:27)
[2024-10-02 09:02] VITALS: BP 132/88; TEMP 97.9
--- NOTE | 2024-10-02 09:30 | P.DS ---
Admission Date: 09/30/24 Discharge Date: 10/02/24 Disposition: ROUTINE DISCHARGE Discharge Condition: GOOD Reason for Admission: Fever and abdominal pain Brief History of Present Illness: This is a 48 years old female patient with past medical history notable for colonic diverticulum and colonic polyp, allergic rhinitis status post section who presented to the emergency room today for evaluation of a fever up to 101 Fahrenheit at home, lower abdominal pain and nausea for 2 days. Her abdominal pain was moderate intensity, no medication tried at home, intermittent, aggravated by motion, associated with nausea but no vomiting, located in lower abdomen mainly left lower quadrant, she had a bowel movement yesterday, it was a small amount, denied any hematochezia or diarrhea. She was diagnosed with a colonic diverticulum and colonic polyp by colonoscopy 2 years ago. Denied any episode of diverticulitis in the past. Her blood pressure was normotensive, mild tachycardic at 101, body temperature 88.1 F, good oxygenation 99% on room air upon arrival at emergency room. Left finding noted for mild leukocytosis 11.6, CT of abdomen and pelvis with contrast revealed uncomplicated colonic diverticulitis of proximal sigmoid colon. She was admitted for IV antibiotics and IV analgesics for acute colonic diverticulitis on general medical floor. Hospital Course: She responded well to IV ciprofloxacin and IV metronidazole. She remained afebrile during hospitalization for 2 days, her pain was reasonably controlled with IV morphine and ibuprofen. She tolerated oral diet and oral medication without vomiting. Patient experienced headache with IV metronidazole so oral Augmentin will be prescribed for 7 days at time of discharge Discharge diagnosis #1 uncomplicated colonic diverticulitis without sepsis CT of the abdomen showed no perforation or abscess #2 acute febrile illness due to #1 no other source of infection, mild leukocytosis resolved #3 colonic diverticulosis and colonic polyp Had a colonoscopy 2 years ago. Vital Signs/Physical Exam: Temp Pulse Resp BP Pulse Ox 97.9 F 76 16 132/88 98 10/02/24 08:00 10/02/24 08:00 10/02/24 08:00 10/02/24 08:00 10/02/24 08:00 Other Physical/Emotional Findings: - Physical Exam. General: Not acutely ill looking, in no apparent distress,. HEENT: Normocephalic, atraumatic,. Neck: Supple, without JVD or goiter or thyroid mass. Respiratory: Normal breathing effort, clear to auscultation bilaterally, no crackles no wheezing or rhonchi. Cardiovascular: Regular rate and rhythm, S1, S2 normal, no murmur no gallop. Gastrointestinal: Normal bowel sounds, nondistended, mild direct tenderness in suprapubic area and left lower quadrant, which is less then admission, no rebound tenderness, No ascites, , No masses, no hepatosplenomegaly. Musculoskeletal: No clubbing, No peripheral edema. Integumentary: No rashes. Lymphatics: No axilla or cervical lymphadenopathy. Neurology; alert awake oriented x3, no focal neurologic deficit Laboratory Data at Discharge: WBC 5.40 thou/uL (4.3-10.9) 10/02/24 05:03 Hgb 11.1 g/dL (12.0-15.0) L 10/02/24 05:03 Hct 32.9 % (36.0-45.0) L 10/02/24 05:03 Plt Count 186 thou/uL (152-406) 10/02/24 05:03 Sodium 140 mEq/L (136-145) 10/02/24 05:03 Potassium 3.5 mEq/L (3.5-5.1) 10/02/24 05:03 BUN 8 mg/dL (7-18) 10/02/24 05:03 Creatinine 0.50 mg/dL (0.55-1.02) L 10/02/24 05:03 Glucose 100 mg/dL (74-106) 10/02/24 05:03 Magnesium 1.9 mg/dL (1.6-2.4) 10/01/24 05:31 Total Bilirubin 0.7 mg/dL (0.2-1.0) 09/30/24 11:57 AST < 10 U/L (15-37) L 09/30/24 11:57 ALT 15 U/L (13-56) 09/30/24 11:57 Alkaline Phosphatase 50 U/L (45-117) 09/30/24 11:57 Triglycerides 127 mg/dL (<150) 10/01/24 05:31 Cholesterol 134 mg/dL (<200) 10/01/24 05:31 HDL Cholesterol 46 mg/dL (40-60) 10/01/24 05:31 Cholesterol/HDL Ratio 2.91 10/01/24 05:31 Lipase 30 U/L (13-75) 09/30/24 11:57 Imagings Data: CT of abdomen pelvis on admission shows segmental thickening of proximal sigmoid colon, no evidence of perforation or abscess. Multiple diverticuli throughout the colon Home Medications: norethindrone-e.estradioL-iron [Blisovi 24 Fe Tablet] 1 tab PO DAILY 09/30/24 Amox/Clavulanate [Augmentin 875-125 Tab] 1 each PO BID 7 Days tab 10/02/24 Ibuprofen [Motrin] 600 mg PO TID 7 Days tab 10/02/24 Ondansetron [Zofran (Odt)*] 4 mg PO Q4H PRN #20 tab 10/02/24 New Medications: Amox/Clavulanate [Augmentin 875-125 Tab] 1 each PO BID 7 Days tab Ibuprofen [Motrin] 600 mg PO TID 7 Days tab Ondansetron [Zofran (Odt)*] 4 mg PO Q4H PRN #20 tab PRN Reason: Nausea / Vomiting Diet: Regular Activity: Ad polo Followup: Benja Castro MD [Primary Care Provider] - 1-2 Weeks
== END 2024-10-02 10:00 | disposition home or self-care (01) | DRG 392 ==
LOC: ER 11:22 → ERHOLD 17:35 → 2ND 18:35
PROVIDERS: ADMIT Internal Medicine; ATTEND Internal Medicine
DX: K57.32 Diverticulitis of large intestine without perforation or abscess without bleeding (principal); D72.829 Elevated white blood cell count, unspecified; Z91.013 Allergy to seafood; K57.90 Diverticulosis of intestine, part unspecified, without perforation or abscess without bleeding
CPT/HCPCS: 36415; 74177; 80048; 80053; 80061; 81001; 81025; 83690; 83735; 85025; 96365; 96366; 96375; 99285; J0696; J2270; J2405; J2470; J2550; J7030; Q9967